=== PATIENT | male | born 1995 | race Hispanic/Latino ===

== ENCOUNTER 2020-08-27 12:04 | Emergency (ER) | payer OTHER ==
[2020-08-27] MEDS ORDERED: Ondansetron PF 4 MG/2 ML Vial ONE (12:43)
[2020-08-27] MEDS ORDERED: Ketorolac Tromethamine 30 MG/ML VIAL ONE (12:44)
[2020-08-27 13:04] LABS: #Basophils 0.1 10x3/uL (0.0-0.2); #Eosinphils 0.2 10x3/uL (0.0-0.5); #Monocytes 0.8 10x3/uL (0.0-1.1); #Neutrophils 10.3 10x3/uL (1.5-8.4); %Basophils 0.5 % (0.0-2.0); %Eosinophils 1.4 % (0.0-6.0); %Monocytes 6.5 % (0.0-10.0); %Neutrophils 82.6 % (40.0-75.0); Hemoglobin 14.9 g/dL (13.5-17.5); Mean Corpuscular Hemoglobin 26.3 pg (27.0-33.0); Mean Corpuscular Volume 82.2 fl (81.2-95.1); Mean Platelet Volume 10.1 fl (7.4-10.4); Platelet Count 290 10x3/uL (150-450); RBC Distribution Width 15.4 % (11.5-14.5); Red Blood Cell (RBC) Count 5.67 10x6/uL (4.32-5.72); White Blood Cell (WBC) Count 12.5 10x3/uL (3.5-10.5)
[2020-08-27 13:16] LABS: ALT (SGPT) 33 U/L (8-55); AST (SGOT) 17 U/L (5-34); Albumin 4.2 g/dL (3.5-5.0); Alkaline Phosphatase 153 U/L (40-110); Anion Gap 13 mmol/L (10-20); BUN (Urea Nitrogen) 12 mg/dL (8.9-20.6); Bilirubin, Total 0.4 mg/dL (0.2-1.2); Calc. Creatinine Clearance 0 mL/min (70-130); Calcium 8.8 mg/dL (7.8-10.44); Carbon Dioxide 21 mmol/L (22-29); Chloride 106 mmol/L (98-107); Globulin 3.4 g/dL (2.4-3.5); Glucose 140 mg/dL (70-105); Lipase 17 U/L (8-78); Potassium 4.4 mmol/L (3.5-5.1); Protein, Total 7.6 g/dL (6.0-8.3); Sodium 136 mmol/L (136-145)
== END 2020-08-27 14:10 | disposition home or self-care (01) ==
LOC: CSHERS 12:04
DX: R11.2 Nausea with vomiting, unspecified (principal); R10.13 Epigastric pain; E11.9 Type 2 diabetes mellitus without complications; I10 Essential (primary) hypertension
CPT/HCPCS: 80053; 83690; 85025; 96374; 96375; J1885; J2405

== ENCOUNTER 2020-09-18 19:22 | Emergency (ER) | payer OTHER, SELFPAY | END 2020-09-18 19:59 | disposition home or self-care (01) | LOC: CSHERS 19:22 → EEVIPCON 19:22 → CSHERS 19:59 | DX: G89.29 Other chronic pain (principal); M25.571 Pain in right ankle and joints of right foot; R10.30 Lower abdominal pain, unspecified; E11.9 Type 2 diabetes mellitus without complications; I10 Essential (primary) hypertension | CPT/HCPCS: 99283 ==

== ENCOUNTER 2021-04-06 21:00 | Emergency (ER) | payer OTHER, SELFPAY ==
[2021-04-06] MEDS ORDERED: Ondansetron ODT 4 MG TAB ONE (22:42)
[2021-04-06] MEDS ORDERED: Acetaminophen 500 MG TAB ONE (22:42)
[2021-04-07] MEDS ORDERED: Ketorolac Tromethamine 30 MG/ML VIAL ONE (00:23)
[2021-04-07 00:51] LABS: #Basophils 0.1 10x3/uL (0.0-0.2); #Eosinphils 0.2 10x3/uL (0.0-0.5); #Monocytes 0.8 10x3/uL (0.0-1.1); #Neutrophils 6.1 10x3/uL (1.5-8.4); %Basophils 0.8 % (0.0-2.0); %Eosinophils 1.8 % (0.0-6.0); %Lymphocytes 14.5 % (18.0-47.0); %Monocytes 9.3 % (0.0-10.0); %Neutrophils 72.6 % (40.0-75.0); Hemoglobin 14.1 g/dL (13.5-17.5); Mean Corpuscular HGB CONC 32.3 g/dL (32.0-36.0); Mean Corpuscular Volume 80.5 fl (81.2-95.1); Mean Platelet Volume 10.9 fl (7.4-10.4); Platelet Count 241 10x3/uL (150-450); RBC Distribution Width 14.4 % (11.5-14.5); Red Blood Cell (RBC) Count 5.43 10x6/uL (4.32-5.72); White Blood Cell (WBC) Count 8.4 10x3/uL (3.5-10.5)
[2021-04-07 00:54] LABS: ALT (SGPT) 41 U/L (8-55); AST (SGOT) 24 U/L (5-34); Albumin 4.1 g/dL (3.5-5.0); Alkaline Phosphatase 176 U/L (40-110); Anion Gap 12 mmol/L (10-20); BUN (Urea Nitrogen) 9 mg/dL (8.9-20.6); Bilirubin, Total 0.4 mg/dL (0.2-1.2); Calc. Creatinine Clearance 0 mL/min (70-130); Calcium 8.7 mg/dL (7.8-10.44); Carbon Dioxide 20 mmol/L (22-29); Chloride 107 mmol/L (98-107); Globulin 3.4 g/dL (2.4-3.5); Glucose 183 mg/dL (70-105); Potassium 3.8 mmol/L (3.5-5.1); Protein, Total 7.5 g/dL (6.0-8.3); Sodium 135 mmol/L (136-145)
[2021-04-07 21:10] LABS: SARS-CoV-2 PCR by NAA Not Detected (NotDetected)
== END 2021-04-07 01:08 | disposition home or self-care (01) ==
LOC: CSHERS 21:00
DX: B34.9 Viral infection, unspecified (principal); Z20.822 Contact with and (suspected) exposure to COVID-19
CPT/HCPCS: 36416; 71045; 80053; 83605; 85025; 87804; 96374; J1885; Q0162; U0003; U0005

== ENCOUNTER 2022-05-08 16:27 | Emergency (ER) | payer SELFPAY ==
[2022-05-08] MEDS ORDERED: Ketorolac Tromethamine 30 MG/ML VIAL ONE (17:24)
[2022-05-08] MEDS ORDERED: Ondansetron PF 4 MG/2 ML Vial ONE (17:24)
[2022-05-08 17:58] LABS: #Basophils 0.1 10x3/uL (0.0-0.2); #Eosinphils 0.2 10x3/uL (0.0-0.5); #Monocytes 0.7 10x3/uL (0.0-1.1); #Neutrophils 6.2 10x3/uL (1.5-8.4); %Eosinophils 2.3 % (0.0-6.0); %Lymphocytes 24.4 % (18.0-47.0); %Monocytes 7.5 % (0.0-10.0); %Neutrophils 64.2 % (40.0-75.0); Hemoglobin 15.8 g/dL (13.5-17.5); Mean Corpuscular HGB CONC 34.9 g/dL (32.0-36.0); Mean Corpuscular Hemoglobin 27.5 pg (27.0-33.0); Mean Corpuscular Volume 78.9 fl (81.2-95.1); Mean Platelet Volume 11.6 fl (7.4-10.4); Platelet Count 280 10x3/uL (150-450); RBC Distribution Width 13.6 % (11.5-14.5); Red Blood Cell (RBC) Count 5.74 10x6/uL (4.32-5.72); White Blood Cell (WBC) Count 9.6 10x3/uL (3.5-10.5)
[2022-05-08 18:18] LABS: ALT (SGPT) 14 U/L (8-55); AST (SGOT) 13 U/L (5-34); Albumin 4.2 g/dL (3.5-5.0); Alkaline Phosphatase 193 U/L (40-110); Anion Gap 15 mmol/L (10-20); BUN (Urea Nitrogen) 13 mg/dL (8.9-20.6); Bilirubin, Total 0.3 mg/dL (0.2-1.2); Calc. Creatinine Clearance 0 mL/min (70-130); Calcium 9.3 mg/dL (7.8-10.44); Carbon Dioxide 19 mmol/L (22-29); Chloride 105 mmol/L (98-107); Estimated GFR 122; Globulin 3.9 g/dL (2.4-3.5); Glucose 382 mg/dL (70-105); Lipase 26 U/L (8-78); Potassium 3.8 mmol/L (3.5-5.1); Protein, Total 8.1 g/dL (6.0-8.3); Sodium 135 mmol/L (136-145)
== END 2022-05-08 19:03 | disposition home or self-care (01) ==
LOC: CSHERS 16:27
DX: A08.4 Viral intestinal infection, unspecified (principal); E11.65 Type 2 diabetes mellitus with hyperglycemia; Z79.84 Long term (current) use of oral hypoglycemic drugs
CPT/HCPCS: 80053; 83605; 83690; 85025; 96361; 96374; 96375; J1885; J2405